=== PATIENT | female | born 1990 | race Caucasian/White ===

== ENCOUNTER 2020-08-07 23:59 | Emergency (ER) | payer OTHER ==
[~2020-08-07 23:59] MED LIST: BENTYL 20MG TAB20 MG PO; CYCLOBENZAPRINE10 MG PO; K-DUR TAB 20 M20 MEQ PO; LEVAQUIN750 MG PO; LEXAPRO20 MG PO; PHENERGAN 12.12.5 M1 PO; VENTOLIN HFA 66.7 GM INH; VIBRAMYCIN100 MG PO; ZOFRAN ODT 4 MG4 MG PO
[2020-08-08 00:45] LABS: HEMOGLOBIN 14.6 gm/dl (12.3-15.3); WHITE BLOOD COUNT 8.8 K/UL (4.5-11.0)
[2020-08-08 01:04] LABS: BUN/CREATININE RATIO 12 (0-10)
[2020-08-08 02:34] LABS: BORDETELLA PARAPERTUSSIS Not Detected (Not Detectd); BORDETELLA PERTUSSIS Not Detected (Not Detectd); CHLAMYDIA PNEUMONIAE Not Detected (Not Detectd); CORONAVIRUS HKU1 Not Detected (Not Detectd); CORONAVIRUS NL63 Not Detected (Not Detectd); CORONAVIRUS OC43 Not Detected (Not Detectd); CORONOAVIRUS 229E Not Detected (Not Detectd); HUMAN METAPNEUMOVIRUS Not Detected (Not Detectd); HUMAN RHINOVIRUS/ENTEROVIRUS Not Detected (Not Detectd); INFLUENZA A Not Detected (Not Detectd); INFLUENZA B Not Detected (Not Detectd); MYCOPLASMA PNEUMONIAE Not Detected (Not Detectd); PARAINFLUENZA VIRUS 1 Not Detected (Not Detectd); PARAINFLUENZA VIRUS 2 Not Detected (Not Detectd); PARAINFLUENZA VIRUS 3 Not Detected (Not Detectd); PARAINFLUENZA VIRUS 4 Not Detected (Not Detectd); RESPIRATORY SYNCYTIAL VIRUS Not Detected (Not Detectd)
[2020-08-08 03:30] LABS: SARS-CoV-2 NOT DETECTED (Not Detectd)
[2020-08-08] MEDS ORDERED: ZOFRAN4 MG PO (04:34)
[2020-08-08] MEDS ORDERED: OMNICEF 300 MG300 MG PO (04:34)
== END 2020-08-08 05:30 | disposition home or self-care (01) ==
LOC: ER1 23:59
PROVIDERS: Physician Assistant
DX: N39.0 Urinary tract infection, site not specified (principal); Z20.822 Contact with and (suspected) exposure to COVID-19
CPT/HCPCS: 0240U; 71045; 80053; 81001; 83605; 84703; 85025; 87040; 87081; 87086; 87633; 87880; 93005; 96374; 96375; 99284; J0696; J2405; Q9967

== ENCOUNTER 2021-06-17 18:09 | Outpatient (CLI) | payer OTHER ==
[~2021-06-17 18:09] MED LIST changes: +OMNICEF 300 MG300 MG PO; +ZOFRAN4 MG PO
== END 2021-06-17 21:33 | disposition home or self-care (01) ==
LOC: GENOP 18:09
DX: O99.891 Other specified diseases and conditions complicating pregnancy (principal); R10.9 Unspecified abdominal pain; O21.2 Late vomiting of pregnancy; O99.013 Anemia complicating pregnancy, third trimester; D64.9 Anemia, unspecified; Z3A.31 31 weeks gestation of pregnancy
CPT/HCPCS: 81001; G0463

== ENCOUNTER 2021-08-06 10:40 | Outpatient (CLI) | payer OTHER ==
[~2021-08-06] VITALS: Ht 170.2 cm; Wt 128.4 kg
== END 2021-08-06 16:20 | disposition home or self-care (01) ==
LOC: GENOP 10:40
DX: O99.891 Other specified diseases and conditions complicating pregnancy (principal); R10.9 Unspecified abdominal pain; R11.2 Nausea with vomiting, unspecified; R19.7 Diarrhea, unspecified; Z3A.38 38 weeks gestation of pregnancy
CPT/HCPCS: 81001; 96360; 96361; 96367; J2405

== ENCOUNTER 2021-08-15 05:35 | Inpatient (IN) | payer OTHER ==
[~2021-08-15] VITALS: Ht 170.2 cm; Wt 128.4 kg
[2021-08-15 07:14] LABS: RED BLOOD COUNT 4.01 M/UL (4.00-5.10); WHITE BLOOD COUNT 13.5 K/UL (4.5-11.0)
[2021-08-15] MEDS ORDERED: VALACYCLOVIR1000 MG PO (10:07)
[2021-08-15] MEDS ORDERED: FERROUS SULFAT325 MG PO (10:07)
[2021-08-15] MEDS ORDERED: FLINTSTONES1 EACH PO (10:08)
[2021-08-16 06:24] LABS: HEMOGLOBIN 9.6 gm/dl (12.3-15.3)
[2021-08-17] MEDS ORDERED: DOCUSATE SODIU100 MG PO (10:14)
[2021-08-17] MEDS ORDERED: IBUPROFEN600 MG PO (10:14)
[2021-08-17] MEDS ORDERED: HYDROCODON-ACE1 EAC4 PO (10:14)
[2021-08-18] MEDS ORDERED: LABETALOL HCL200 MG PO (12:41)
== END 2021-08-18 17:56 | disposition home or self-care (01) | DRG 787 ==
LOC: OB 05:35
PROVIDERS: ADMIT Obstetrics & Gynecology
PROC: 3E0234Z Introduction of Serum, Toxoid and Vaccine into Muscle, Percutaneous Approach (ICD-10-PCS; 2021-08-15)
PROC: 10D00Z1 Extraction of Products of Conception, Low, Open Approach (ICD-10-PCS; principal; 2021-08-15 09:00)
DX: O99.214 Obesity complicating childbirth (principal); O98.52 Other viral diseases complicating childbirth; O34.211 Maternal care for low transverse scar from previous cesarean delivery; O13.4 Gestational [pregnancy-induced] hypertension without significant proteinuria, complicating childbirth; E66.01 Morbid (severe) obesity due to excess calories; B00.9 Herpesviral infection, unspecified; Z3A.39 39 weeks gestation of pregnancy; Z82.0 Family history of epilepsy and other diseases of the nervous system; Z98.890 Other specified postprocedural states; Z37.0 Single live birth; Z82.49 Family history of ischemic heart disease and other diseases of the circulatory system; Z23 Encounter for immunization
CPT/HCPCS: 36415; 81001; 82800; 85014; 85018; 85025; 90715; C9113; J0690; J1170; J2250; J2405; J2590

== ENCOUNTER 2021-08-21 18:25 | Inpatient (IN) | payer OTHER ==
[~2021-08-21] VITALS: Ht 170.2 cm; Wt 128.4 kg
[~2021-08-21 18:25] MED LIST changes: +DOCUSATE SODIU100 MG PO; +FERROUS SULFAT325 MG PO; +FLINTSTONES1 EACH PO; +HYDROCODON-ACE1 EAC4 PO; +IBUPROFEN600 MG PO; +LABETALOL HCL200 MG PO; +VALACYCLOVIR1000 MG PO
[2021-08-21 19:36] LABS: HEMOGLOBIN 10.1 gm/dl (12.3-15.3); RED BLOOD COUNT 4.07 M/UL (4.00-5.10); WHITE BLOOD COUNT 9.7 K/UL (4.5-11.0)
[2021-08-21 19:44] LABS: BUN/CREATININE RATIO 14 (0-10)
[2021-08-22] MEDS ORDERED: FERROUS SULFAT325 M2 PO (10:30)
[2021-08-22] MEDS ORDERED: VALTREX500 MG PO (10:31)
[2021-08-22] MEDS ORDERED: FLINTSTONES1 EAC1 PO (10:31)
[2021-08-23 06:33] LABS: HEMOGLOBIN 9.8 gm/dl (12.3-15.3); RED BLOOD COUNT 3.98 M/UL (4.00-5.10)
[2021-08-23 06:56] LABS: BUN/CREATININE RATIO 13 (0-10)
[2021-08-24] MEDS ORDERED: FUROSEMIDE20 MG PO (11:25)
[2021-08-24] MEDS ORDERED: LABETALOL HCL200 MG PO (11:25)
== END 2021-08-24 12:19 | disposition home or self-care (01) | DRG 776 ==
LOC: ER1 18:25 → OB 20:27 → CDU 20:27 → OB 20:27
PROVIDERS: Emergency Medicine; Obstetrics & Gynecology; ADMIT Obstetrics & Gynecology
PROC: B24BZZZ Ultrasonography of Heart with Aorta (ICD-10-PCS; principal; 2021-08-23)
DX: O14.15 Severe pre-eclampsia, complicating the puerperium (principal); Z20.822 Contact with and (suspected) exposure to COVID-19; Z98.891 History of uterine scar from previous surgery; I08.1 Rheumatic disorders of both mitral and tricuspid valves; I27.20 Pulmonary hypertension, unspecified; O99.43 Diseases of the circulatory system complicating the puerperium; Z82.49 Family history of ischemic heart disease and other diseases of the circulatory system; Z82.0 Family history of epilepsy and other diseases of the nervous system; Z82.5 Family history of asthma and other chronic lower respiratory diseases
CPT/HCPCS: ECHO; 36415; 80053; 81001; 83690; 83735; 83880; 84550; 85025; 87086; 93005; 93306; 96374; 96375; 96376; 99284; G0378; J0360; J0610; J1940; J2405; J3475